=== PATIENT | female | born 1945 | race American Indian/Alaskan Native ===

== ENCOUNTER 2017-03-28 12:54 | Outpatient (CLI) | payer MEDICARE ==
--- NOTE | 2017-03-28 13:57 | Mammography Report ---
BILATERAL MAMMOGRAM: FINDINGS: The breast tissue is heterogeneously dense, which could obscure detection of small masses (approximately 50%-75% glandular). No mass, distortion, suspicious calcification, or skin change is seen. Left biopsy marker. No significant change identified when compared to prior exams dating back to 2015. CAD was utilized. IMPRESSION: Negative mammogram. There is no mammographic evidence of malignancy. RECOMMENDATION: Follow-up per ACS guidelines. BI-RADS CATEGORY: 1 = Negative ACR BI-RADS MAMMOGRAPHIC CODES: 0 = Needs additional imaging evaluation; 1 = Negative; 2 = Benign; 3 = Probably benign; 4 = Suspicious; 5 = Malignant; 6 = Known biopsy-proven malignancy COMMENT: 1. Dense breast tissue, i.e., adenosis, fibrocystic changes, etc., may obscure an underlying neoplasm. 2. Approximately 10% of cancers are not detected with mammography. 3. A negative mammography report should not delay biopsy if a clinically suspicious mass is present. COMMENT: Patient follow-up letters are generated in [employer].
== END 2017-03-28 12:55 | disposition home or self-care (01) ==
LOC: MAMMO 12:54
PROVIDERS: ATTEND Family Medicine
DX: Z12.31 Encounter for screening mammogram for malignant neoplasm of breast (principal)
CPT/HCPCS: 77067; G0202

== ENCOUNTER 2019-05-25 10:43 | Outpatient (CLI) | payer MEDICARE ==
--- NOTE | 2019-05-26 10:09 | Mammography Report ---
DIGITAL SCREENING MAMMOGRAM WITH CAD, 05/25/2019 INDICATION: Routine screening mammography. TECHNIQUE: Digital bilateral 2D mammography was obtained in the craniocaudal and mediolateral obliq ue projections. This examination was interpreted with the benefit of Computer-Aided Detection analysi s. COMPARISON: 03/28/2017 FINDINGS: Breast Density: The breasts are heterogeneously dense, which may obscure small masses. There is no evidence of dominant mass, suspicious calcifications or architectural distortion in eithe r breast. A left lower inner biopsy clip. IMPRESSION: No mammographic evidence of malignancy. Follow up recommendation: Routine yearly BI-RADS Category 2: Benign. A "normal" or negative report should not discourage follow up or biopsy of a clinically significant f inding. A written summary of these findings will be mailed to the patient. The patient will be entered into a mammography reporting system which will generate a reminder letter for the patient's next appointmen t at the appropriate interval. The [employer] recommends yearly mammograms starting at age 40 and continuing as l polo as a woman is in good health. Breast MRI is recommended for women with an approximate 20-25% or greater lifetime risk of breast cancer, including women with a strong family history of breast or ova margarito cancer or who have been treated for Hodgkin's disease. Signer Name: Alonzo Sharpe MD Signed: 05/26/2019 10:04 AM Workstation Name: [id number]
== END 2019-05-25 10:44 | disposition home or self-care (01) ==
LOC: MAMMO 10:43
PROVIDERS: ATTEND Family Medicine
DX: Z12.31 Encounter for screening mammogram for malignant neoplasm of breast (principal)
CPT/HCPCS: 77067

== ENCOUNTER 2020-05-26 15:08 | Outpatient (CLI) | payer MEDICARE ==
--- NOTE | 2020-05-29 09:00 | Mammography Report ---
DIGITAL SCREENING MAMMOGRAM WITH CAD, 05/26/2020 CLINICAL INFORMATION / INDICATION: Routine screening mammography. TECHNIQUE: Digital bilateral 2D mammography was obtained in the craniocaudal and mediolateral obliqu e projections. This examination was interpreted with the benefit of Computer-Aided Detection analysis . COMPARISON: 05/25/2019, 06/05/2015 FINDINGS: Breast Density: The breasts are heterogeneously dense, which may obscure small masses. No dominant mass, suspicious calcifications, or architectural distortion in the right breast. There i s a small cluster of microcalcifications in the left breast at 6:00, posterior depth. These have incr eased in number slightly since prior exams and will need further evaluation with magnification views. Additionally there is a biopsy clip in the left breast at 9:00 unchanged in appearance. IMPRESSION: Increasing cluster of microcalcifications in the left breast at 6:00. Recommend left magn ification views. Follow up recommendation: Special View: Mag BI-RADS Category 0: Incomplete. Needs additional imaging evaluation and/or prior mammograms for gabbi morin. A "normal" or negative report should not discourage follow up or biopsy of a clinically significant f inding. A written summary of these findings will be mailed to the patient. The patient will be entered into a mammography reporting system which will generate a reminder letter for the patient's next appointmen t at the appropriate interval. The [employer] recommends yearly mammograms starting at age 40 and continuing as l polo as a woman is in good health. Breast MRI is recommended for women with an approximate 20-25% or greater lifetime risk of breast cancer, including women with a strong family history of breast or ova margarito cancer or who have been treated for Hodgkin's disease. Signer Name: Marya De La Fuente MD Signed: 05/29/2020 8:56 AM Workstation Name: [id number]
== END 2020-05-26 15:09 | disposition home or self-care (01) ==
LOC: MAMMO 15:08
PROVIDERS: ATTEND Family Medicine
DX: Z12.31 Encounter for screening mammogram for malignant neoplasm of breast (principal); N64.89 Other specified disorders of breast
CPT/HCPCS: 77067

== ENCOUNTER 2021-12-06 10:22 | Day surgery (SDC) | payer MEDICARE ==
[2021-12-06] MEDS ORDERED: SODIUM CHLORIDE 0.9% 1000 ML 1,000 ML IV SCH (11:30)
[2021-12-06] MEDS ORDERED: propofoL 200 MG/20 ML VIAL IV ONE (12:07)
[2021-12-06] MEDS ORDERED: WATER FOR IRRIG STERILE 250 ML BOTTLE IR ONE (12:20)
--- NOTE | 2021-12-06 12:43 | Anesthesia Consultation ---
Anesthesia Consult and Med Hx Date of service: 12/06/21 - Airway Anesthetic Teeth Evaluation: Good ROM Head & Neck: Adequate Mental/Hyoid Distance: Adequate Mallampati Class: Class I Intubation Access Assessment: Good - Pre-Operative Health Status ASA Pre-Surgery Classification: ASA3 Proposed Anesthetic Plan: MAC - Pulmonary Hx Smoking: No Hx Respiratory Symptoms: No - Cardiovascular System Hx Hypertension: Yes Hx Heart Attack/AMI: No Hx Percutaneous Transluminal Coronary Angioplasty (PTCA): No Hx Cardia Arrhythmia: Yes (Hx WPW) Hx Pacemaker: No Hx Internal Defibrillator: No - Central Nervous System CVA: No - Endocrine Hx Renal Disease: No Hx Liver Disease: No Hx Insulin Dependent Diabetes: No Hx Non-Insulin Dependent Diabetes: No Hx Thyroid Disease: No - Additional Comments Anesthesia Medical History Comments: No hx anesthetic complications.
--- NOTE | 2021-12-06 12:43 | Anesthesia Day of Surgery ---
Anesthesia Day of Surgery - Day of Surgery Patient Examined: Yes Patient H&P Reviewed: Yes Patient is NPO: Yes
--- NOTE | 2021-12-06 13:32 | Operative Report ---
Operative Report Operative Report: Colonoscopy DATE:12/06/2021 ATTENDING PHYSICIAN: Bc Coombs M.D. BIRD TRAPPER: Bc Coombs M.D. INDICATIONS: Patient is a 76 y.o. female who presents for colorectal cancer screening . Patient also has a history of guaiac positive stool/blood in stool. A colonoscopy is done to evaluate patient so that treatment may be directed based on the findings. CONSENT: Informed consent was obtained after the patient was advised regarding the nature of this procedure, its indications, potential benefits as well as possible complications including but not limited to bleeding, perforation, adverse reaction to medications, infection as well as cardiopulmonary complications. An informed written and verbal consent was then obtained after due opportunity was provided for questions and answers. MONITORING: Patient monitored continuously with pulse oximetry, electrocardiographic recordings as well as automatic blood pressure recordings. Patient remained stable throughout the procedure with no untoward events. PREOPERATIVE ASSESSMENT: Patient was assessed immediately prior to this procedure for capacity to tolerate moderate sedation/monitored anesthesia care. [employer] classification is 2. Mallampati class is 2. Hyomental distance is 3. INSTRUMENT: Olympus video colonoscope [id number]. MEDICATIONS: Propofol given intravenously in divided doses. For details, please refer to anesthesia records. DESCRIPTION OF PROCEDURE: Patient was placed in the left lateral decubitus position, after achieving sedation, a digital rectal examination was performed following which the colonoscope was introduced into the anal verge and advanced under direct visualization to the cecum which was identified by the ileocecal valve, the appendiceal orifice, the cecal strap as well as by direct transillumination in the right lower quadrant. Color texture mucosa and anatomy of the colon were carefully examined with the colonoscope. The colonoscope was then gently withdrawn with careful inspection of all mucosa surfaces. The patient tolerated the procedure well with no complications. After completion of the examination, patient was transferred to the recovery room. The prep written regimen was GoLYTELY and the preparation was adequate with a Bethel prep scale score of 6 The following findings were noted. FINDINGS: Patient had diverticulosis involving the sigmoid colon and the descending colon. On the retroflexed view at the anal verge patient had prominent internal hemorrhoids. IMPRESSION: Colonic diverticulosis. Internal Hemorrhoids otherwise normal colonoscopy. . PLAN: High fiber diet. Will benefit from hemorrhoidal brand ligation
[2021-12-06 13:45] VITALS: BP 154/82
--- NOTE | 2021-12-06 13:50 | Post Anesthesia Evaluation ---
- Post Anesthesia Evaluation Patient Participated: Yes Airway Patent: Yes Stable Respiratory Function: Yes Nausea/Vomiting: No Temp > 96.8F: Yes Pain Manageable: Yes Adequeate Hydration: Yes Anesthesia Complications: No
== END 2021-12-06 13:30 | disposition home or self-care (01) ==
LOC: GIO 10:22
PROVIDERS: ATTEND Internal Medicine Gastroenterology
DX: K92.1 Melena (principal); K57.30 Diverticulosis of large intestine without perforation or abscess without bleeding; K64.8 Other hemorrhoids; Z79.899 Other long term (current) drug therapy; I10 Essential (primary) hypertension; I42.9 Cardiomyopathy, unspecified
CPT/HCPCS: 45378; J2704; J7030